=== PATIENT | female | born 1945 | race Caucasian/White ===

== ENCOUNTER → 2016-07-03 | Outpatient (CLI) | payer MEDICARE, OTHER ==
[~2016-07-03] MED LIST: ASPI-611 PO; CALC-41 PO; CITA-49 PO; ESOM20CA18 PO; EZET1TAB30 PO; METO25TA41 PO; NITR0.4T38 SL; RISE35TA
== END ==
LOC: WC.BC 11:02
DX: Z12.31 Encounter for screening mammogram for malignant neoplasm of breast (principal); N64.59 Other signs and symptoms in breast
CPT/HCPCS: 77063; G0202